=== PATIENT | female | born 1960 | race Caucasian/White ===

== ENCOUNTER 2018-01-11 12:00 | Emergency (ER) | payer BC ==
[2018-01-11 12:28] LABS: BASOPHILS 0.2 % (0-2); EOSINOPHILS 1.8 % (0-7); HEMATOCRIT 44.9 % (36.0-48.0); IMMATURE GRANULOCYTES 0.3 % (0-5); LYMPHOCYTES 24.7 % (15-50); MCHC 33.4 g/dL (31.0-37.0); MCV 95.7 fL (80.0-100.0); MEAN PLATELET VOLUME 9.2 fL (7.4-10.4); MONOCYTES 9.2 % (2-11); NEUTROPHILS 63.8 % (40-80); PLATELET COUNT 339 10x3/uL (130-400); RBC 4.69 10x6/uL (4.00-5.40); RDW 12.3 % (11.5-14.5); WBC 11.6 10x3/uL (4.8-10.8)
[2018-01-11 12:44] LABS: ALBUMIN 3.7 g/dL (3.4-5.0); ANION GAP 11.7 mmol/L (8-16); BILIRUBIN - TOTAL 0.66 mg/dL (0.2-1.3); CALCIUM 9.7 mg/dL (8.5-10.1); CARBON DIOXIDE 28.6 mmol/L (21.0-32.0); CREATININE - SERUM 0.9 mg/dL (0.6-1.3); POTASSIUM - SERUM 4.3 mmol/L (3.5-5.1); PROTEIN - SERUM 7.8 g/dL (6.4-8.2)
[2018-01-11 13:26] LABS: APPEARANCE HAZY (CLEAR); BACTERIA FEW /hpf (NONE SEEN); BILIRUBIN NEGATIVE (NEGATIVE); COLOR YELLOW (YELLOW); EPITHELIAL CELLS RARE /hpf (0-5); GLUCOSE NEGATIVE (NEGATIVE); KETONE NEGATIVE (NEGATIVE); MUCUS <1+ /lpf (NONE SEEN); NITRITE NEGATIVE (NEGATIVE); PROTEIN NEGATIVE (NEGATIVE); RED CELLS - URINE 0-5 /hpf (0-5); SPECIFIC GRAVITY 1.015 (1.005-1.020); UROBILINOGEN NORMAL (NORMAL)
== END 2018-01-11 15:06 | disposition home or self-care (01) ==
LOC: D.ER 12:00
PROVIDERS: Family Medicine
DX: R10.9 Unspecified abdominal pain (principal); R11.2 Nausea with vomiting, unspecified; N12 Tubulo-interstitial nephritis, not specified as acute or chronic

== ENCOUNTER → 2018-06-14 08:41 | Outpatient (CLI) | payer BC | END | disposition home or self-care (01) | LOC: D.US 08:41 | DX: R10.11 Right upper quadrant pain (principal) ==

== ENCOUNTER 2018-09-13 08:51 | Emergency (ER) | payer BC ==
[~2018-09-13] VITALS: Ht 170.2 cm; Wt 120.5 kg
[2018-09-13 08:58] VITALS: BP 176/105; Ht 170.2 cm; Wt 120.5 kg
[2018-09-13 09:27] LABS: UDS - AMPHET NEGATIVE QUAL (NEGATIVE); UDS - BARB NEGATIVE QUAL (NEGATIVE); UDS - BENZO NEGATIVE QUAL (NEGATIVE); UDS - COCAINE NEGATIVE QUAL (NEGATIVE); UDS - OPIATE POSITIVE QUAL (NEGATIVE); UDS - PCP NEGATIVE QUAL (NEGATIVE); UDS - THC NEGATIVE QUAL (NEGATIVE)
[2018-09-13 09:32] LABS: APPEARANCE CLEAR (CLEAR); COLOR STRAW (YELLOW)
[2018-09-13 09:33] LABS: BILIRUBIN NEGATIVE (NEGATIVE); GLUCOSE NEGATIVE (NEGATIVE); KETONE NEGATIVE (NEGATIVE); NITRITE NEGATIVE (NEGATIVE); PROTEIN NEGATIVE (NEGATIVE); UROBILINOGEN NORMAL (NORMAL)
[2018-09-13 09:34] LABS: BACTERIA FEW /hpf (NONE SEEN); EPITHELIAL CELLS 0-5 /hpf (0-5); RED CELLS - URINE 0-5 /hpf (0-5); WHITE CELLS - URINE 0-5 /hpf (0-5)
[2018-09-13 10:33] LABS: BASOPHILS 0.2 % (0-2); EOSINOPHILS 1.5 % (0-7); HEMATOCRIT 43.1 % (36.0-48.0); HEMOGLOBIN 14.5 g/dL (12-16); IMMATURE GRANULOCYTES 0.5 % (0-5); LYMPHOCYTES 17.2 % (15-50); MCH 32.9 pg (26.0-34.0); MCHC 33.6 g/dL (31.0-37.0); MCV 97.7 fL (80.0-100.0); MEAN PLATELET VOLUME 8.9 fL (7.4-10.4); MONOCYTES 8.2 % (2-11); NEUTROPHILS 72.4 % (40-80); PLATELET COUNT 344 10x3/uL (130-400); RBC 4.41 10x6/uL (4.00-5.40); RDW 12.3 % (11.5-14.5); WBC 16.9 10x3/uL (4.8-10.8)
[2018-09-13 10:44] LABS: APTT 24.6 SECONDS (22.8-39.4); INR 0.95 (0.85-1.17); PROTIME 12.2 SECONDS (11.6-15.0)
[2018-09-13 10:47] LABS: ALBUMIN 3.2 g/dL (3.4-5.0); ALKALINE PHOSPHATASE 114 U/L (46-116); ALT (SGPT) 22 U/L (10-68); BILIRUBIN - TOTAL 0.26 mg/dL (0.2-1.3); CALC OSMOLALITY 282 mosm/kg (275-300); CALCIUM 8.4 mg/dL (8.5-10.1); CARBON DIOXIDE 23.5 mmol/L (21.0-32.0); CHLORIDE - SERUM 106 mmol/L (98-107); CREATININE - SERUM 0.7 mg/dL (0.6-1.3); GLUCOSE 126 mg/dL (74-106); POTASSIUM - SERUM 3.9 mmol/L (3.5-5.1); PROTEIN - SERUM 7.3 g/dL (6.4-8.2); SODIUM 142 mmol/L (136-145); UREA NITROGEN 6 mg/dL (7-18); eGFR NON AFRICAN AMERICAN > 90 mL/min (90-120)
[2018-09-13 11:02] LABS: CKMB 0.6 U/L (0.0-3.6); CREATINE KINASE 45 UL (21-215); MAGNESIUM - SERUM 1.9 mg/dL (1.8-2.4); THYROID STIMULATING HORMONE 4.84 uIU/mL (0.36-3.74); TROPONIN-I < 0.017 ng/mL (0.000-0.060)
[2018-09-13] MEDS ORDERED: CLEOCIN HCL300 MG PO (14:24)
[2018-09-13] MEDS ORDERED: NORCO 10-325 TA1 TAB PO (14:24)
[2018-09-13] MEDS ORDERED: CIPRODEX OTIC7.5 ML EACH EAR (14:24)
[2018-09-13] MEDS ORDERED: KEFLEX500 MG PO (14:24)
== END 2018-09-13 14:37 | disposition home or self-care (01) ==
LOC: D.ER 08:51
PROVIDERS: Family Medicine
DX: H60.503 Unspecified acute noninfective otitis externa, bilateral (principal); H66.93 Otitis media, unspecified, bilateral; R50.9 Fever, unspecified; R05 Cough; R09.89 Other specified symptoms and signs involving the circulatory and respiratory systems; F17.200 Nicotine dependence, unspecified, uncomplicated

== ENCOUNTER 2020-05-06 15:30 | Outpatient (CLI) | payer BC ==
[2018-09-13 08:58] VITALS: BMI 41.6
[~2020-05-06 15:30] MED LIST: CIPRODEX OTIC7.5 ML EACH EAR; CLEOCIN HCL300 MG PO; KEFLEX500 MG PO; NORCO 10-325 TA1 TAB PO
== END 2020-05-06 23:59 | disposition home or self-care (01) ==
LOC: D.MAMMO 15:30
PROVIDERS: ATTEND Family Medicine
DX: N64.4 Mastodynia (principal)